=== PATIENT | female | born 1945 | race Caucasian/White ===

== ENCOUNTER 2017-11-19 07:15 | Outpatient (CLI) | payer OTHER | END 2017-11-19 07:16 | disposition home or self-care (01) | LOC: SONOGRAMA 07:15 | DX: E04.2 Nontoxic multinodular goiter (principal) ==

== ENCOUNTER → 2019-06-18 | Outpatient (CLI) | payer OTHER | END | disposition home or self-care (01) | LOC: NUCLEAR 07:00 | DX: I25.118 Atherosclerotic heart disease of native coronary artery with other forms of angina pectoris (principal); I11.9 Hypertensive heart disease without heart failure | CPT/HCPCS: 78452; 93017; A9500; J0153 ==